=== PATIENT | male | born 1990 | race Caucasian/White ===

== ENCOUNTER → 2017-01-26 | Outpatient (CLI) | payer BC | LOC: COL.RAD 07:20 | DX: R74.8 Abnormal levels of other serum enzymes (principal) ==

== ENCOUNTER → 2020-02-19 | Outpatient (CLI) | payer BC | LOC: ZCOL.LAB 07:29 | DX: J02.9 Acute pharyngitis, unspecified (principal); R06.02 Shortness of breath; R52 Pain, unspecified; Z20.828 Contact with and (suspected) exposure to other viral communicable diseases ==